=== PATIENT | female | born 1985 | race Caucasian/White ===

== ENCOUNTER 2023-10-07 05:08 | Emergency (ER) | payer MEDICAID ==
[2023-10-07] MEDS ORDERED: EPINEPHrine 1:10,000 1 MG/10 ML Syringe IVPUSH ONE ×5 (05:12→05:26)
== END 2023-10-07 09:07 | disposition expired ==
LOC: MERGE 05:08 → LL.ED 05:08
DX: I46.9 Cardiac arrest, cause unspecified (principal); J70.5 Respiratory conditions due to smoke inhalation
CPT/HCPCS: 92950; 99285-25; J0171